=== PATIENT | male | born 1955 | race Caucasian/White ===

== ENCOUNTER → 2019-07-15 11:29 | Outpatient (CLI) | payer MEDICARE, BC ==
[2019-07-15 11:59] LABS: C-REACTIVE PROTEIN 1.9 mg/dL (0.0-0.9)
== END | disposition home or self-care (01) ==
LOC: D.LABREF 11:29
PROVIDERS: ATTEND Internal Medicine Infectious Disease
DX: T81.40XA Infection following a procedure, unspecified, initial encounter (principal); M00.9 Pyogenic arthritis, unspecified